=== PATIENT | male | born 1980 | race Caucasian/White ===

== ENCOUNTER → 2021-10-01 14:30 | Outpatient (CLI) | payer OTHER, MEDICAID, SELFPAY ==
[2021-10-01 16:05] LABS: Lactate Dehydrogenase 665 U/L (313-618)
[2021-10-01 16:22] LABS: HCG Quantitative /Beta subunit 3.2 mIU/mL (-2.40)
[2021-10-02 06:04] LABS: Alpha Fetoprotein 12.7 ng/mL (0.0-8.3)
== END ==
PROVIDERS: PCP Internal Medicine; Referring Provider Specialist; Visit Provider Specialist
DX: C62.12 Malignant neoplasm of descended left testis (principal); N50.812 Left testicular pain; D49.59 Neoplasm of unspecified behavior of other genitourinary organ; M54.50 Low back pain, unspecified
CPT/HCPCS: 36415; 51798; 81002; 82105; 83615; 84702; 99215

== ENCOUNTER → 2021-10-03 09:47 | Outpatient (CLI) | payer OTHER, MEDICAID, SELFPAY ==
[2021-10-03 13:25] LABS: COVID19 -Nasal RAPID Negative (Negative)
== END ==
PROVIDERS: PCP Internal Medicine; Visit Provider Physician Assistant
DX: Z01.812 Encounter for preprocedural laboratory examination (principal); Z20.822 Contact with and (suspected) exposure to COVID-19
CPT/HCPCS: 87635; C9803

== ENCOUNTER 2021-10-06 09:19 | Day surgery (SDC) | payer OTHER, MEDICAID, SELFPAY ==
[2021-10-06] VITALS (9 sets, daily range): BP systolic 99–124; BP diastolic 62–90; PULSE 67–76; RESP 13–18; TEMP 36.5–37.1; O2SAT 95–100; BMI 22.8
--- NOTE | 2021-10-06 | PATH_ITS ---
[facility] Accession Number: [id number] No. of containers..01 Tissue . 01 Material submitted: . testis - LEFT TESTICLE AND CORD . 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 Please see cancer case summary below. . . CANCER CASE SUMMARY . Specimen Specimen laterality: Left. . . Tumor Tumor focality: Unifocal. Tumor size: 3.5 x 3.0 x 3.0 cm. Additional tumor nodules: Not applicable. Histologic type: Embryonal carcinoma. Tumor extent: Invades rete testis. Lymphovascular invasion: Present. . Margins Margin status: All margins negative for tumor. . Regional lymph nodes Regional lymph node status: Cannot be assigned; no nodes submitted or found. . Distant metastasis Distance sites involved: Cannot be determined; no additional tissue or specimen(s) submitted. . Pathologic stage classification (pTNM, AJCC 8th Edition): pT2 pN not assigned (no nodes submitted or found) pM not applicable (cannot be determined from submitted specimen) . Additional findings: Germ cell neoplasia in situ (GCNIS), necrosis present (approximately 25% of apparent tumor volume). [facility] 10/15/2021 1346 Local . 02 Comment: As part of routine quality control director, this case was also reviewed by Dr. Alcantar, who agrees with the interpretation. . 02 Electronically signed: . Anabel Ann MD, Pathologist NPI- [id number] . 01 Gross description: . The specimen is received in formalin, labeled left testicle and cord and consists of an 82-gram, 7.5 x 4.5 x 4.5 cm testicle with attached spermatic cord measuring 6.0 x 2.0 x 1.8 cm. The external surface is metcalf-pink with fibrinous adhesions and minimal attached adipose tissue. The specimen is inked blue and sectioned to reveal a 3.5 x 3.0 x 3.0 cm lobulated moderately defined metcalf-white focally hemorrhagic mass abutting the tunica albuginea, coming to within 0.3 cm from the tunica vaginalis and greater than 2 cm from the spermatic cord margin. The mass does not involve the rete testis or epididymis. The remaining testicular parenchyma is metcalf-pink and spongy. The epididymis measures 5.2 x 1.0 x 0.8 cm. There is yellow-tinged serous fluid between the tunica vaginalis and tunica albuginea. 911 Emergency Dispatcher sections are submitted. . A1: Spermatic cord margin, en face (blue). A2: Mid and distal spermatic cord cross sections. A3: Mass in relation to epididymis. A4: Mass in relation to tunica albuginea. A5: Mass in relation to rete testis. A6: Additional sales representative advertising section of mass. ([id number]) /MRV 10/08/2021 1348 Local . 02 Microscopic: . An immunohistochemistry study is performed to evaluate the cells of interest. The control stain shows appropriate reactivity. . RESULTS: CD117: Negative. SALL4: Positive. OCT3/4: Positive. CD30: Positive. CHA: Positive. CD45: Negative. . The neoplastic cells are immunopositive for CHA, CD30, OCT3/4 and SALL4. They are immunonegative for CD117 and CD45. These findings support an interpretation of non-seminomatous germ cell tumor, embryonal carcinoma type, and mitigate against a seminoma or lymphoma. . As part of routine quality control director, Dr. Alcantar also reviewed this case and agrees with the diagnosis. . * This test was developed and its performance characteristics determined by [employer]. It has not been cleared or approved by the U.S. Food and Drug Administration. The FDA has determined that such clearance or approval is not necessary. This test is used for clinical purposes. It should not be regarded as investigational or for research. . 02 Pathologist provided ICD-10: C62.92 . 02 CPT . 346174, [id number], [id number] Performed at: 01 [facility] [address] [place] [address], [place], [place] [id number] MD Corky Hills MD Phone: [phone] Performed at: 02 [facility] [address] [place] [id number] MD Rosemarie Collado MD Phone: [phone]
[2021-10-06] MEDS: LACTATED RINGERS 1,000 ML 42 ML IV (12:40)
[2021-10-06] MEDS: ACETAMINOPHEN IV 1,000 MG/100 ML VIAL 400 MG IV (14:24)
--- NOTE | 2021-10-06 14:30 | PM.PREOP ---
Pre-operative Note Interval Note History & Physical reviewed/Exam performed by Physician: Yes Changes to H&P: Yes H&P completed within 30 days and has changed as indicated here:: The patient provides new history of mild to moderate and intermittent left flank pain last week to now bilateral back pain, pain with deep inhalation below his lower costal margin posteriorly and similar pain with cough. To clarify, he has no new primary cough.
[2021-10-06] MEDS: CEFAZOLIN 2 GM/20 ML SYRINGE IV (14:55)
--- NOTE | 2021-10-06 15:12 | SUR.OPER ---
Supine on padded OR bed, head on pillow, arms secured on padded arm boards at <90 degrees abduction, rolled towel under patients wrists for support, legs uncrossed, safety belt at thigh, tape over blanket over lower legs. gel pad under heels. Bed flexed at patients iliac crest per Surgeon direction.
--- NOTE | 2021-10-06 15:13 | SUR.OPER ---
Operating Room #2 Humidity at 18% upon entry with patient.
[2021-10-06] MEDS: BUPIVACAINE 0.5% W/ EPI (PF) 30 ML VIAL INJ (15:19)
[2021-10-06] MEDS: BUPIVACAINE LIPOSOME 266 MG/20 ML VIAL INJ (15:45)
--- NOTE | 2021-10-06 15:57 | P.OP_ITS ---
Operative Date/Time/Diagnoses Date of procedure: 10/06/21 Time of procedure: 15:57 Pre-op diagnosis: Left testicular neoplasm Post-op diagnosis: same Procedure & Clinicians Procedure: Left radical orchiectomy Same procedure as scheduled: Yes Indications: Left testicular neoplasm Surgeon: Raymond Branch Click Yes if Unassisted: Yes Anesthesia Type: General and Local (1.33% Exparel) Operative Notes Findings: 1. Normal left inguinal in lower quadrant tissue planes. 2. Nodular and hemorrhagic left scrotal contents within and intact tunica vaginalis. 3. Left cord grossly normal visually and palpably. Closure Type: primary Specimen(s): other (Left testicle and cord) Estimated Blood Loss (mL): 1 Blood products transfused: none Procedure in detail: The patient was positioned supine and the lower abdomen, genitalia, and groin were then prepped and draped in sterile fashion. A solution of 0.5% Marcaine was then used to infiltrate the skin and subcutaneous tissue of the left inguinal canal. An oblique incision was then conducted through the skin and subcutaneous fat and Caridad's fascia layer was then divided using blunt and cautery technique. The rectus fascial sheath was then encounter. It was then opened parallel to its fibers over the left inguinal canal. The cord was then carefully isolated and elevated from the inguinal canal. The ilioinguinal nerve was identified was carefully dissected from the surface of the cord it was then gently reflected superiorly out of the operative field for the remainder of the case. The cord was then mobilized up to the level of the internal ring. The cord was then crossclamped with a Fay clamp distally and then proximally the cord was divided into 2 bundles and then were each in gauged with a tonsil clamp the cord was then transected. Each of the proximal bundles were then 1st suture ligated with 0 silk and then secondarily a free tie of 0 Tycron was applied each. The vas and cord structures with then infiltrated with Exparel. Next external ring was opened using blunt technique. The left hemiscrotal contents were then delivered from the left hemiscrotum and brought up to into, and above the incision. The group inaccurate was carefully isolated using blunt technique. It was then transected through an avascular plane using the cautery pen. The rectus fascia and ileal inguinal nerve was then infiltrated with Exparel anesthetic. Rectus fascia was then closed using a running 2-0 PDS. Caridad's fascial layer was then closed with a running 2-0 Monocryl. This layer was infiltrated with local anesthetic Exparel as well. Now a subcuticular reapproximation was performed using the same 2-0 Monocryl in a running fashion. The skin layer was then infiltrated with Exparel anesthetic. It was then reapproximated using a running subcuticular 4-0 Monocryl. The skin surface was then cleaned and dried. A small segment of Telfa was then trimmed and tailored appropriately to fit over the incision line generously over this a medium-sized transparent Op site was applied for completion of the dressing. Dry sterile fluffs were then applied to the left hemiscrotal contents and the patient was fitted with an athletic supporter. The patient was then awakened, transferred to [facility], and transferred to recovery in stable condition. Complications: none Post-operative Condition: stable Disposition: PACU Plan for aftercare: Discharge home.
[2021-10-06] MEDS: KETOROLAC 30 MG/ML VIAL IV (16:40)
[2021-10-06] MEDS: OXYCODONE IR 5 MG TABLET PO (16:47)
== END 2021-10-06 17:25 | disposition home or self-care (01) ==
LOC: OR 09:22
PROVIDERS: PCP Internal Medicine; Referring Provider Specialist; Visit Provider Specialist
PROC: (CPT 54520; principal; 2021-10-06 10:45)
DX: C62.92 Malignant neoplasm of left testis, unspecified whether descended or undescended (principal); F17.210 Nicotine dependence, cigarettes, uncomplicated
CPT/HCPCS: 54530; 82962; C9290; J0131; J0690; J1100; J1885; J2250; J2405; J2704; J3010

== ENCOUNTER → 2021-10-15 13:03 | Outpatient (CLI) | payer OTHER, MEDICAID, SELFPAY ==
--- NOTE | 2021-10-15 15:30 | DI.CT.S_ITS ---
PROCEDURE: CT CHEST ABD PEL W CON INDICATIONS: Metastisis TECHNIQUE: After the administration of oral and intravenous contrast, axial sections acquired from the supraclavicular neck to the pubic symphysis. Coronal and sagittal reformats were performed. For radiation dose reduction, the following was used: automated exposure control, adjustment of mA and/or kV according to patient size. COMPARISON:[facility], , CT ABDOMEN/PELVIS WITHOUT CONTRAST, 10/06/2021, 19:47. FINDINGS: Image quality: Excellent. CHEST: Lower Neck: No enlarged lymph nodes. Thyroid: Within normal limits. Axillae: No enlarged lymph nodes. Chest Wall: Unremarkable. Lungs and Airways: 6 mm solid nodule is noted in medial left upper lobe near apex series 3, image 69. 8 mm solid nodule is seen in anterior medial aspect of left lingular segment series 3, image 172. 1.4 x 1.1 cm solid nodule is seen adjacent to lateral pleura of right lower lobe series 3, image 250. 1 x 0.6 cm solid nodule is seen adjacent to medial pleura of right lower lobe series 3, image 188. 3 mm solid nodule is seen in anterior right upper lobe series 3, image 151. Pleura: No pneumothorax or pleural effusions. Heart: Heart size is normal. No pericardial effusion. Thoracic Vessels: The aorta and pulmonary arteries demonstrate normal size. Mediastinum and Marian[place]: No enlarged lymph nodes. Esophagus: No wall thickening. No hiatal hernia. ABDOMEN: Liver: Unremarkable. Gallbladder: Within normal limits. Biliary ducts: Unremarkable. Pancreas: Unremarkable. Spleen: Unremarkable. Adrenal Glands: Unremarkable. Kidneys and Ureters: Unremarkable. Stomach and Bowel: There is no bowel obstruction. No abnormal gastric or small bowel wall thickening. Questionable diffuse sigmoid colon wall thickening is seen which may be due to under distension. Low-grade colitis cannot be excluded. No abscess collection. Peritoneum: No abnormal intraperitoneal fluid. No free air. Ventral Wall: No hernia. Abdominal Nodes: No mesenteric lymphadenopathy by size criteria. Prominent left retroperitoneal lymph nodes are seen measures up to 2 x 2.6 cm in size in left periaortic space series 2, image 74 . Necrotic appearing left periaortic lymph no measures 1 x 1.6 cm in size is also seen series 2, image 84. Vessels: Aorta and inferior vena cava are normal in size. PELVIS: Pelvic Organs: Unremarkable. Bladder: Unremarkable. Pelvic Nodes: No enlarged lymph nodes. Miscellaneous: There is bilateral hydrocele and small pockets of air seen in left scrotum which was also noted on previous outside CT study previously noted subcutaneous in left anterior abdominal/pelvic wall is no longer seen with mild residual subcutaneous fat stranding. Bones: No suspicious bony lesion. No acute vertebral body compression fracture. IMPRESSION: 1. Right greater than left bilateral hydrocele with small amount of air seen within left scrotum. Finding likely related to patient's known testicular cancer. Interval resolution of small amount of subcutaneous emphysema seen in left anterior pelvic wall and inguinal region with mild residual subcutaneous fat stranding in left anterior lower abdominal wall. 2. Multiple solid-appearing nodules seen scattered in bilateral lung ramirez measures up to 1.4 x 1.1 cm in size in lateral aspect of right lower lobe concerning for metastatic disease. 3. Prominent left periaortic/retroperitoneal lymphadenopathy likely represent metastatic disease. 4. Nonspecific mild left sigmoid colon wall thickening and edema concerning for low-grade colitis versus under distension. Dictated by: Jewel Pisano M.D. on 10/15/2021 at 14:36 Approved by: Jewel Pisano M.D. on 10/15/2021 at 14:50
--- NOTE | 2021-10-16 11:31 | ONC.MSW ---
Description: New Referral Navigation T/C Reason for Referral: Testicular Cancer-metastatic Activity: Reviewed referral and EMR for medical status, acuity, and immediate needs. Pt was just recently dx with testicular cancer w/mets, rapidly increasing PSA. Discussed his referral, as well as ongoing assistance/support/resource referrals/care coordination available through navigation services. Confirmed an urgent appt. time for today at 3:20pm. Will meet with pt once he arrives in clinic, prior to his provider visit.
== END ==
PROVIDERS: PCP Internal Medicine; Referring Provider Specialist; Visit Provider Specialist
DX: C62.12 Malignant neoplasm of descended left testis (principal); N50.812 Left testicular pain; N43.3 Hydrocele, unspecified; R91.8 Other nonspecific abnormal finding of lung field; R59.0 Localized enlarged lymph nodes
CPT/HCPCS: 71260; 74177; Q9967

== ENCOUNTER → 2021-10-31 13:35 | Outpatient (CLI) | payer OTHER, MEDICAID, SELFPAY ==
[2021-10-31 14:00] LABS: COVID19 -Nasal RAPID Negative (Negative)
== END ==
PROVIDERS: PCP Internal Medicine; Visit Provider Surgery
DX: Z01.812 Encounter for preprocedural laboratory examination (principal); Z20.822 Contact with and (suspected) exposure to COVID-19
CPT/HCPCS: 87635

== ENCOUNTER → 2021-10-31 16:22 | Outpatient (CLI) | payer OTHER, MEDICAID, SELFPAY ==
--- NOTE | 2021-11-05 09:50 | PM.PFT.1 ---
Pulmonary Function Test Referral & Results Date Patient Seen: 10/31/21 Requesting provider: Madeline Breaux Results: The spirometry demonstrates an FVC of 4.90 L which is 87% of predicted. The FEV1 was measured at 3.76 L which is 84% of predicted. The FEV1/FVC ratio was 77 which is 95% of predicted. Following the administration of bronchodilator there was a 15% improvement in FEF 25-75% Lung volumes show an SVC of 4.90 L which is 91% of predicted. The diffusing capacity was measured at 25.75 which is 73% of predicted. No hemoglobin value was provided, so no correction for potential anemia could be made, if appropriate. The maximum voluntary ventilation was normal Interpretation: This study demonstrates perhaps extremely mild obstructive lung disease based on minimal reduction FEV1 although FEV1/FVC ratio is preserved, there is some very limited evidence of benefit following bronchodilator administration particularly small airway flow based on improvement in FEF 25-75%. However, the shape of the flow volume loop does not support the presence of obstructive lung disease There is minimal reduction diffusing capacity suggesting element of disease at the capillary alveolar level unless patient is anemic Overall however I would classify this is a probably normal pulmonary function study Clinical correlation suggested specially given the borderline findings as above
== END ==
PROVIDERS: PCP Internal Medicine; Referring Provider Internal Medicine Hematology & Oncology; Visit Provider Internal Medicine Hematology & Oncology
DX: C62.92 Malignant neoplasm of left testis, unspecified whether descended or undescended (principal); Z01.818 Encounter for other preprocedural examination; Z20.822 Contact with and (suspected) exposure to COVID-19; F17.210 Nicotine dependence, cigarettes, uncomplicated; J98.8 Other specified respiratory disorders
CPT/HCPCS: 87635; 94060; 94726; 94729; C9803

== ENCOUNTER 2021-11-03 06:39 | Day surgery (SDC) | payer OTHER, MEDICAID, SELFPAY ==
[2021-10-30 09:04] VITALS: BMI 22.4
[2021-11-03] VITALS (8 sets, daily range): BP systolic 100–123; BP diastolic 58–80; PULSE 65–92; RESP 10–18; TEMP 36.2–36.6; O2SAT 96–100; BMI 22.4
[2021-11-03] MEDS: LACTATED RINGERS 1,000 ML 42 ML IV (07:20)
--- NOTE | 2021-11-03 07:48 | PM.HP.1 ---
History of Present Illness History of Present Illness Date Patient Seen: 11/03/21 Time Patient Seen: 07:48 Chief complaint: SDC Narrative: Oliver is a 41-year-old gentleman who has had a recent diagnosis of testicular cancer. He was scheduled for MediPort last week but he developed a wound infection of the left groin and required brief hospitalization Caitlin Lazar. His infection has resolved and he has no drainage or redness around the wound. He is due for his 1st dose of chemotherapy today. Patient History Medical History Bilateral kidney stones History of nephrolithotomy with removal of calculi Malignant neoplasm of left testis Retained urethral stent Surgical History (Updated 10/30/21 @ 16:28 by Madeline Breaux MD) History of tonsillectomy and adenoidectomy Status post radical unilateral orchiectomy (10/06/21) Family & Social History Family History Mother Migraines Thyroid disease Grandfather Colon cancer Social History: household members significant other,family Tobacco & Substance use: Tobacco type cigarettes Smoking Status Former smoker alcohol intake current alcohol intake frequency 0-2 drinks per day Substance Use Type marijuana Meds Home Medications and Allergies Home Medications Medication Instructions Recorded Confirmed Type acetaminophen 325 mg tablet 650 mg PO Q6H PRN 10/16/21 11/03/21 History (Tylenol) ibuprofen 200 mg tablet 400 mg PO Q6H PRN 10/16/21 11/03/21 History oxycodone 5 mg tablet 5 mg PO Q4H PRN #20 tab 10/29/21 11/03/21 Rx cephalexin 500 mg capsule 500 mg PO BID 11/03/21 11/03/21 History levofloxacin 500 mg tablet 500 mg PO BID 11/03/21 11/03/21 History Allergies Allergy/AdvReac Type Severity Reaction Status Date / Time No Known Drug Allergies Allergy Verified 11/03/21 06:59 Exam Vital Signs (past 8 hours): - 11/03/21 07:02 Temperature 97.1 F L Pulse Rate 74 Respiratory Rate 16 Blood Pressure 123/75 Pulse Oximetry 100 Oxygen Delivery Method Room Air Narrative Exam Narrative: Nontoxic Well-healed left inguinal incision No deformity or surgical scars in the upper bilateral chest or neck region. Assessment & Plan Assessment and plan (1) Malignant neoplasm of left testis: Qualifiers: Descendance of testis: descended Qualified Code(s): C62.12 - Malignant neoplasm of descended left testis Status: Acute Plan Risks and benefits of Port-A-Cath reviewed with the patient including risk of pneumothorax. He would like to proceed. We will leave the port accessed so he can go over for chemo straight after the procedure. COVID-19 COVID-19 status: Negative Result date/Date tested (Pos, Neg/Pending): 10/31/21 Time Spent With Patient Critical Care time: I spent a total of [] minutes of critical care time on this patient's care today; this time is exclusive of procedural time.
[2021-11-03] MEDS: CEFAZOLIN 2 GM/20 ML SYRINGE IV (08:06)
--- NOTE | 2021-11-03 08:08 | SUR.OPER ---
Supine on padded OR bed, head on gel donut, arms padded and tucked at sides, legs uncrossed, safety belt at thigh, tape over blanket over lower legs . Gel pad under bilateral heels.
--- NOTE | 2021-11-03 08:23 | SUR.OPER ---
Patients cell phone placed in patients belongings bag into shoe in preop area.
[2021-11-03] MEDS: BUPIVACAINE 0.5% (PF) VIAL 30 ML INJ (08:24)
[2021-11-03] MEDS: LIDOCAINE 1% W/EPI 20 ML INJ (08:25)
[2021-11-03] MEDS: HEPARIN 5,000 UNIT, SODIUM CHLORIDE 0.9% 50 ML IV (08:26)
--- NOTE | 2021-11-03 08:56 | PM.OP.1 ---
Operative Date/Time/Diagnoses Date of procedure: 11/03/21 Time of procedure: 08:56 Pre-op diagnosis: Testicular cancer Post-op diagnosis: same Procedure & Clinicians Procedure: Port-A-Cath Same procedure as scheduled: Yes Indications: Testicular cancer Surgeon: Nishant Riddle Click Yes if Unassisted: Yes Anesthesia Type: General Operative Notes Estimated Blood Loss (mL): 10 Procedure in detail: The patient was brought to the operating room, placed on the table in the supine position with the arms tucked. Ancef was administered. Anesthesia was induced via LMA. A time-out was performed. The right chest and neck were prepped and draped in the usual fashion. An ultrasound was used to identify the right internal jugular vein. The vein was noted to be patent. An image was saved and printed and placed in the chart. The right internal jugular vein was accessed via the Seldinger technique under ultrasound guidance. The guidewire was inserted into the superior vena cava. C-arm was used to confirm proper position of the guidewire in the superior vena cava and no ectopy was noted. The needle was removed and the wire was clamped to the drape. Next, a port pocket was created just inferior to the medial clavicle using a 15 blade scalpel. Dissection was carried down to the pectoral fascia. A subcutaneous pocket was created using a combination of cautery and blunt dissection. Next, the port which was primed with injectable saline, was secured to the fascia with 3-0 PDS sutures left untied and clamped. The neck incision was extended with an 15 blade scalpel to approximately 5 mm. The dilator and peel-away sheath were inserted over the wire without resistance. The catheter was passed from the neck incision to the chest incision in the subcutaneous tissue using the tunnelling device. The wire and dilator were then removed and the catheter inserted through the peel-away sheath to deliver it into the superior vena cava. The depth of the device was checked using the C-arm and the tip of the device was noted to be in the distal superior vena cava. The exterior portion of the catheter was then trimmed and attached to the port using the strain relief collar. A final image showed good position of the catheter with no kinks. The port was then tucked into the subcutaneous pocket and the sutures were tied to secure the device. The port was then accessed using the Tolbert needle and it was noted that the device vianca and flushed easily without resistance. Approximately 4 mL of heparinized saline were injected into the device. The skin incisions were closed with 3-0 Vicryl and 4-0 Monocryl. Steri-Strips were applied patient was awakened and brought to recovery room. Since the patient was going to proceed directly to chemotherapy the port was accessed with the Tolbert needle attached to a catheter which was primed with saline. This was capped and padded with 4x4s and covered with paper tape. EBL: 10 mL Ultrasound: The right internal jugular vein was patent. The right carotid artery was visualized adjacent to the vein. Venipuncture was visualized in real-time using the ultrasound. Fluoroscopy: The device was positioned appropriately with the distal end of the catheter near the atriocaval junction. There were no kinks in the catheter. Post-operative Condition: stable Disposition: PACU
--- NOTE | 2021-11-03 09:00 | DI.RAD.S_ITS ---
PROCEDURE: XR CHEST 1V INDICATIONS: RIGHT PORT-A-CATH PLACEMENT TECHNIQUE: One view of the chest was acquired. [facility], CT, CT CHEST ABD PEL W CON, 10/15/2021, 14:11. endedOMPARISON: FINDINGS: Surgical changes and devices: Right Port-A-Cath is present with distal tip projecting over the midline of the thoracic spine. Lungs and pleura: Right lower lobe nodule is present measuring approximately 8 mm. This corresponds to mass on CT of 10/15/2021. Left upper lobe nodule is also visualized measuring approximately 6 mm. This is also present on the CT of 10/15/2021. Additional nodules identified on that CT exam are not clearly visible on current study. No pleural effusions or pneumothorax. Mediastinum: Mediastinal contours appear normal. Heart size is mildly enlarged. Bones and chest wall: No suspicious bony lesions. Overlying soft tissues appear unremarkable. IMPRESSION: Right Port-A-Cath projecting over the midthoracic spine. It is suspected to be venous in nature given patient rotation. However, if any concern persists., repeat study Pulmonary nodules as previously identified. Dictated by: Larisa Smith M.D. on 11/03/2021 at 10:13 Approved by: Larisa Smith M.D. on 11/03/2021 at 10:16
--- NOTE | 2021-11-03 09:08 | SUR.PHASEI ---
0900 hrs: Pt arrives PACU breathing unassisted. Report from NILESH Ross and Dr. Comer.
--- NOTE | 2021-11-03 10:02 | SUR.PHASEII ---
d/c instructions discussed, pt voiced an understanding, pt wanting to go home, ride called, available for pick up truck driver, pt dressed. Dressing remained c/d/i.
--- NOTE | 2021-11-03 10:08 | SUR.PHASEII ---
Pt left unit in stable condition.
== END 2021-11-03 10:08 | disposition home or self-care (01) ==
PROVIDERS: PCP Internal Medicine; Referring Provider Surgery; Visit Provider Surgery
PROC: (CPT 36561; principal; 2021-11-03 07:45)
DX: C62.92 Malignant neoplasm of left testis, unspecified whether descended or undescended (principal)
CPT/HCPCS: 36561; 71045; 76000; C1788; J0690; J1100; J1644; J2250; J2405; J2704; J3010